=== PATIENT | male | born 1980 | race Caucasian/White ===

== ENCOUNTER 2025-03-13 11:43 | Emergency (ER) | payer BC, SELFPAY ==
[2025-03-13 11:44] VITALS: BMI 29.9
[2025-03-13 12:02] VITALS: BP 156/88; PULSE 64; RESP 17; TEMP 36.7; O2SAT 96
[2025-03-13 12:25] LABS: Collection Type, Urine Clean Catch; Squamous Epithelial Cell,Urine 0 /hpf (0-5)
[2025-03-13 12:31] LABS: Bilirubin,Urine Negative (Negative); Blood,Urine 1+ (Negative); Clarity,Urine Clear (Clear/Hazy); Color,Urine Lt-Yellow (Lt Yel-Yel); Culture Indicated,Urine Not Indicated; Glucose, Urine Negative (Negative); Ketones,Urine 1+ (Negative); Leukocyte Esterase,Urine Negative (Negative); Nitrite,Urine Negative (Negative); PH,Urine 5.5 (5.0-7.0); Protein,Urine Negative (Neg - Trace); RBC,Urine 2 /hpf (0-3); Specific Gravity,Urine 1.022 (1.001-1.035); Urobilinogen,Urine Negative mg/dL (0.0-1.0); WBC,Urine 1 /hpf (0-5)
--- NOTE | 2025-03-13 12:36 | XR_ITS ---
Examination: CT abdomen and pelvis without contrast. Coronal 3-D reconstructions. Sagittal 2-D reconstructions. Date and time of exam:03/13/2025, 12:51 PM Indication hematuria, flank pain CTDI: vol (mGy): 8.54 DLP: (mGycm): 548 , Technique: Axial images of the abdomen have been obtained, 3 mm slice thickness Intravenous contrast material has not been administered. Low dose protocols were performed. One or more of the following dose reduction techniques were used; automated exposure control, adjustment of the mA and/or KV according to patient size, use of iterative reconstruction technique. Findings: 3 mm calculus to the right UVJ. 2 mm calculus distal right ureter. The right kidney is enlarged with moderate perinephric inflammation and minimal right hydronephrosis. Left urinary tract is unremarkable. Lung bases are clear. Liver is mildly enlarged to 18.6 cm. The gallbladder, pancreas, spleen bilateral adrenal glands are unremarkable. No visualized abnormality of the GI tract. No pelvic masses or fluid collections. No acute bony abnormality. IMPRESSION: Right-sided urinary tract calculi at the right UVJ in the distal right ureter as above. Right perinephric inflammation in the renal swallowing. Mild right hydronephrosis Borderline hepatomegaly.
--- NOTE | 2025-03-13 12:38 | PD.EDRME ---
Rapid Medical Screening Exam RME Arrival date/time: 03/13/25 11:43 Chief Complaint: Urogenital-Male Time Seen by Provider: 03/13/25 12:36 Vital signs: Vital Signs Temperature 98.0 F 03/13/25 12:02 Pulse Rate 64 03/13/25 12:02 Respiratory Rate 17 03/13/25 12:02 Blood Pressure 156/88 H 03/13/25 12:02 Pulse Oximetry (%) 96 03/13/25 12:02 Oxygen Delivery Method Room Air 03/13/25 12:02 RME Narrative: 44-year-old male with right flank pain times this morning. Waves of nausea. No hematuria. No burning with urination. Does have history of kidney stones but over 5 years ago was last imaging. No fever.
[2025-03-13] MEDS: KETOROLAC INJ 60 MG/2 ML VIAL 30 MG IM (12:45)
[2025-03-13] MEDS: ONDANSETRON ODT 4 MG TABRAP PO (12:45)
[2025-03-13 13:00] LABS: Basophils # (Auto) 0.0 Thou/mm3 (0.0-0.2); Basophils % (Auto) 0 % (0-2.5); Eosinophils # (Auto) 0.0 Thou/mm3 (0.0-0.5); Eosinophils % (Auto) 0 % (0-10); Hematocrit 47.7 % (41.0-53.0); Hemoglobin 16.7 g/dL (13.5-16.0); Immature Granulocytes Auto 0.06 Thou/mm3 (0.00-0.00); Lymphocytes # (Auto) 0.9 Thou/mm3 (1.0-4.8); Lymphocytes % (Auto) 7 % (10-50); Mean Corpuscular HGB Conc 35.0 g/dl (31.0-37.0); Mean Corpuscular Hemoglobin 28.9 pg (25.0-35.0); Mean Corpuscular Volume 83 fL (80-100); Monocytes # (Auto) 0.6 Thou/mm3 (0.0-0.8); Monocytes % (Auto) 5 % (0-12); Neutrophils # (Auto) 11.5 Thou/mm3 (1.8-7.7); Neutrophils % (Auto) 88 % (37-80); Nucleated Red Blood Cell # 0.00 Thou/mm3 (0.00-0.00); Nucleated Red Blood Cell % 0 /100 WBC (0); Platelet Count 163 Thou/mm3 (140-440); RDW Standard Deviation 42.5 fL (35.1-43.9); Red Blood Count 5.78 Miln/mm3 (4.50-5.90); White Blood Count 13.2 Thou/mm3 (3.8-10.6)
[2025-03-13 13:17] LABS: Alanine Aminotransferase 56 U/L (10-49); Albumin, Serum 4.8 gm/dL (3.5-5.0); Albumin/Globulin Ratio 1.7 (1.2-2.2); Alkaline Phosphatase 70 U/L (46-116); Anion Gap 10 (7-16); Aspartate Amino Transferase 35 U/L (0-34); BUN/Creatinine Ratio 11 Ratio (12-20); Bilirubin,Total 2.8 mg/dL (0.3-1.2); Blood Urea Nitrogen 13 mg/dL (9-23); Calcium 10.3 mg/dL (8.3-10.6); Calcium (Corrected) 10.3 mg/dL (8.5-10.1); Carbon Dioxide 27.3 mMol/L (20.0-31.0); Chloride 104 mMol/L (98-107); Creatinine (Component) 1.2 mg/dL (0.6-1.3); Estimated Creatinine Clearance 95.5 mL/min (>60); Globulin 2.8 gm/dL (2.3-3.5); Glucose 105 mg/dL (74-106); Lipase 27 U/L (12-53); Osmolality,Calculated 281 (275-295); Potassium 4.1 mMol/L (3.4-5.1); Sodium 141 mMol/L (136-145); Total Protein 7.6 gm/dL (5.7-8.2); eGFR > 60 See Note
--- NOTE | 2025-03-14 06:55 | EDNOTE_ITS ---
ED Male Genitalurinary RME/HPI General Chief complaint: Urogenital-Male Stated complaint: RT FLANK PAIN Time Seen by Provider: 03/13/25 12:36 Arrival date/time: 03/13/25 11:43 Limitations: no limitations RME / HPI RME / HPI Narrative: 44-year-old male with right flank pain times this morning. Waves of nausea. No hematuria. No burning with urination. Does have history of kidney stones but over 5 years ago was last imaging. No fever. Related Data Previous Rx's ?Medication ?Instructions ?Recorded hydrocodone 5 mg-acetaminophen 325 1 tab PO BID PRN pa in #10 tabs 11/12/21 mg tablet ibuprofen 800 mg tablet 800 mg PO TID PRN pain #30 t abs 11/12/21 ondansetron 4 mg disintegrating 4 mg PO Q8H PRN nausea and 11/12/21 tablet vomiting #14 tabs IBU 800 mg tablet (ibuprofen) 800 mg PO Q6H PRN pain # 30 tabs 03/13/25 hydrocodone 5 mg-acetaminophen 325 1 tab PO BID PRN pa in 7 days #14 03/13/25 mg tablet tabs ondansetron 4 mg disintegrating 4 mg PO Q8H PRN nausea and 03/13/25 tablet vomiting #10 tabs tamsulosin 0.4 mg capsule (Flomax) 0.4 mg PO QDAY 1 mo nth #30 caps 03/13/25 Allergies Allergy/AdvReac Type Severity Reaction Status Date / Time No Known Allergies Allergy Unverified 03/13/25 12:38 Review of Systems Review of Systems Systems Reviewed: All systems reviewed, normal except as documented Gastrointestinal Gastrointestinal: Reports as per HPI Genitourinary Genitourinary: Reports as per HPI ED Exam General Limitations: Present no limitations General appearance: Present alert and in no apparent distress Eye Eye exam: Present normal appearance, PERRL and EOMI Respiratory Respiratory exam: Present normal lung sounds bilaterally Cardiovascular Cardiovascular exam: Present regular rate, normal rhythm and normal heart sounds Abdominal Exam Abdominal exam: Present tenderness (right cvat ) and normal bowel sounds Extremities Exam Extremities exam: Present normal inspection and full ROM Back Exam Back exam: Present normal inspection and full ROM Skin Skin exam: Present warm, dry, intact and normal color Course Quality Measures none Orders Category Date Time Status CT abdomen pelvis wo con Stat Exams 03/13/25 12:36 Completed CBC Stat Lab 08/30/25 12:45 Completed CMP [Comprehensive Metabolic Panel] Stat Lab 03/13/25 12:45 Completed Lipase Stat Lab 03/13/25 12:45 Completed Urinalysis, C/S if Indicated Stat Lab 03/13/25 12:20 Completed HYDROcodone*/APAP 5/325 [[place] 5/325] Med 03/13/25 12:36 Discontinued 1 tab PO X1 ONE Ketorolac Inj [Toradol Inj] Med 03/13/25 12:36 Discontinued 30 mg IM X1 ONE Ondansetron Odt [Zofran Odt] Med 03/13/25 12:36 Discontinued 4 mg PO X1 ONE Vital Signs Vital signs: Vital Signs Temperature 98.0 F 03/13/25 12:02 Pulse Rate 64 03/13/25 12:02 Respiratory Rate 17 03/13/25 12:02 Blood Pressure 156/88 H 03/13/25 12:02 Pulse Oximetry (%) 96 03/13/25 12:02 Oxygen Delivery Method Room Air 03/13/25 12:02 Urogenital - Male Patient data External records reviewed:: [facility] previous records Clinical information provided by:: patient Social determinants that could affect healthcare access:: other (specify) (Works long hours unable to get appointment during the week) Patient has the following chronic illnesses:: Kidneys How is presenting disease/condition affected by chronic disease/condition?: caused by Evaluation data The following diagnostics were reviewed and interpreted by me:: lab results and radiology exam(s) Lab and/or radiology exams considered but not ordered:: All testing considered was Interpretation Summary: CT scan shows UVJ stones, elevated WBCs however UA did not show signs of infection. At this time no renal failure. No other significant findings on w orkup Medications / Prescriptions Medications or Prescriptions considered but not ordered:: Antibiotics were considered however unlikely to be an infected stone Medication administrations:: Medication Administration History Discontinued Medications Hydrocodone Bitart/Acetaminophen (Hydrocodone/Apap 5/325 Tablet) 1 tab PO X1 ONE Stop: 03/13/25 12:37 Last Admin: 03/13/25 12:47 Dose: Not Given Documented By: PEPITO Non-Admin Reason: Patient Refused Ketorolac Tromethamine (Ketorolac Inj 60 Mg/2 Ml Vial) 30 mg IM X1 ONE Stop: 03/13/25 12:37 Last Admin: 03/13/25 12:45 Dose: 30 mg Documented By: PEPITO Ondansetron HCl (Ondansetron Odt 4 Mg Tabrap) 4 mg PO X1 ONE; Protocol Stop: 03/13/25 12:37 Last Admin: 03/13/25 12:45 Dose: 4 mg Documented By: PEPITO See above Consultations Consultation(s) initiated? (list below): No Diagnosis Urogenital Male Differential Diagnosis: urinary tract infection, priapism, urethritis, epididymitis, acute retention of urine and other (Kidney stones, pyelonephritis,) Most likely diagnosis given after review of the tests above:: UVJ stone with colic Admission Indicated Admission indicated?: not indicated Admission Request Was there a request for admission?: No Disposition Plan Disposition Plan: Discharge Discharge Attestation Discharge Attestation: The patient and all family members were given an opportunity to ask questions and understood the discharge instructions. Discharge instructions specifically effects, indications for sooner follow up or return to the emergency department, and the expected course of current diagnosis. Patient condition: Stable Discharge Plan Plan Patient Disposition: HOME (Self Care) Discharge Disposition comment: f/.u in 2-3days Prescriptions/Referrals Prescriptions/Med Rec: New hydrocodone-acetaminophen 5-325 mg tablet 1 tab PO BID MDD 2 PRN (Reason: pain) 7 Days Qty: 14 0RF ibuprofen [IBU] 800 mg tablet 800 mg PO Q6H PRN (Reason: pain) Qty: 30 0RF ondansetron 4 mg tablet,disintegrating 4 mg PO Q8H PRN (Reason: nausea and vomiting) Qty: 10 0RF tamsulosin [Flomax] 0.4 mg capsule 0.4 mg PO QDAY 30 Days Qty: 30 0RF No Action ibuprofen 800 mg tablet 800 mg PO TID PRN (Reason: pain) Qty: 30 0RF hydrocodone-acetaminophen 5-325 mg tablet 1 tab PO BID MDD 10 PRN (Reason: pain) Qty: 10 0RF ondansetron 4 mg tablet,disintegrating 4 mg PO Q8H PRN (Reason: nausea and vomiting) Qty: 14 0RF Problem List Clinical Impression: Right ureteral calculus, Acute flank pain, Elevated liver enzymes Patient/Caregiver Discharge Instructions Education Materials: Abdominal Pain, ED Flank Pain, Uncertain Cause, ED Kidney Stone Undescended No ... Print Language: [place] Stand Alone Forms: Madelin Award Info., Patient Portal Info Letter PA/GRAZING EXAMINER Supervising Physician PA/GRAZING EXAMINER Supervising Physician: Dr. Meredith
== END 2025-03-13 19:47 | disposition home or self-care (01) ==
PROVIDERS: Emergency Provider Physician Assistant
DX: N20.1 Calculus of ureter (principal); R74.8 Abnormal levels of other serum enzymes; D72.829 Elevated white blood cell count, unspecified; Z87.442 Personal history of urinary calculi
CPT/HCPCS: 36415; 74176; 80053; 81001; 83690; 85025; 96372; 99283; J1885; Q0162